=== PATIENT | female | born 1950 | race Caucasian/White ===

== ENCOUNTER 2020-07-16 06:47 | Outpatient (CLI) | payer OTHER ==
[2020-07-16 14:35] LABS: #Basophils 0.1 10x3/uL (0.0-0.2); #Eosinphils 0.5 10x3/uL (0.0-0.5); #Monocytes 0.3 10x3/uL (0.0-1.1); #Neutrophils 2.3 10x3/uL (1.5-8.4); %Basophils 1.4 % (0.0-2.0); %Eosinophils 11.3 % (0.0-6.0); %Lymphocytes 25.5 % (18.0-47.0); %Neutrophils 55.6 % (40.0-75.0); Mean Corpuscular HGB CONC 31.7 G/DL (32.0-36.0); Mean Corpuscular Hemoglobin 29.5 PG (27.0-33.0); Mean Corpuscular Volume 93.1 fl (80.0-100.0); Mean Platelet Volume 10.5 fl (7.4-10.4); Platelet Count 262 10x3/uL (130-400); RBC Distribution Width 12.4 % (11.5-14.5); Red Blood Cell (RBC) Count 4.07 10x6/uL (3.90-5.20); White Blood Cell (WBC) Count 4.2 10x3/uL (4.5-11.0)
[2020-07-16 14:46] LABS: Anion Gap 12 mmol/L (10-20); BUN (Urea Nitrogen) 15 mg/dL (9.8-20.1); Calc. Creatinine Clearance 0 mL/min (70-130); Calcium 8.6 mg/dL (7.8-10.44); Carbon Dioxide 24 mmol/L (23-31); Chloride 109 mmol/L (98-107); Glucose 87 mg/dL (83-110); Potassium 4.3 mmol/L (3.5-5.1); Sodium 141 mmol/L (136-145)
[2020-07-17 05:28] LABS: SARS-CoV-2 PCR by NAA Not Detected (NotDetected)
== END 2020-07-16 06:48 | disposition home or self-care (01) ==
LOC: LABBT 06:47
PROVIDERS: ATTEND Orthopaedic Surgery
DX: Z01.812 Encounter for preprocedural laboratory examination (principal); Z20.822 Contact with and (suspected) exposure to COVID-19; S46.011A Strain of muscle(s) and tendon(s) of the rotator cuff of right shoulder, initial encounter; M19.011 Primary osteoarthritis, right shoulder
CPT/HCPCS: 80048; 85025; 87635; U0003; U0005

== ENCOUNTER 2020-07-19 05:53 | Day surgery (SDC) | payer MEDICARE ==
[2020-07-17 10:45] VITALS: BMI 30.5
[2020-07-19] MEDS ORDERED: Fentanyl 100 MCG/2 ML VIAL ONE ×2 (06:34→06:50)
[2020-07-19] MEDS ORDERED: Midazolam HCl 2 mg/2 ml Vial ONE (06:50)
[2020-07-19] MEDS ORDERED: Bupivacaine 0.25% HCL 30 ML VIAL ONE (07:02)
[2020-07-19] MEDS ORDERED: EPINEPHrine 1 MG/ML AMP ONE (07:02)
[2020-07-19] MEDS ORDERED: Phenylephrine 10 MG/ML VIAL ONE (08:11)
[2020-07-19] MEDS ORDERED: Fentanyl 100 MCG/2 ML VIAL SLOW IVP PRN (08:54)
[2020-07-19] MEDS ORDERED: Ondansetron PF 4 MG/2 ML Vial IVP PRN (09:00)
[2020-07-19] MEDS ORDERED: traMADol HCl 50 MG TAB PO PRN ×2 (09:00)
[2020-07-19] MEDS ORDERED: Zolpidem Tartrate 5 MG TAB PO PRN (09:00)
[2020-07-19] MEDS ORDERED: Promethazine HCl 25 MG/ML VIAL IM PRN (09:00)
[2020-07-19] MEDS ORDERED: HYDROcodone/Acetaminophen 10/325 mg Tablet PO PRN ×2 (09:00)
[2020-07-19] MEDS ORDERED: Ropivacaine 0.2% 550 ML 550 ML NERVE BLCK SCH (09:00)
--- NOTE | 2020-07-19 09:53 | OP ---
DATE OF PROCEDURE: 07/19/2020 PREOPERATIVE DIAGNOSIS: Right high-grade partial-thickness rotator cuff tear of the right shoulder. POSTOPERATIVE DIAGNOSIS: Right high-grade partial-thickness rotator cuff tear of the right shoulder. PROCEDURE PERFORMED: Right rotator cuff repair. AVIONICS SYSTEMS ENGINEER: None. ANESTHESIOLOGIST: Vasile Mcfarlane MD ANESTHESIA: The patient received a general intubation with interscalene block. ESTIMATED BLOOD LOSS: Less than 20 mL. TOURNIQUET TIME: None. ANTIBIOTICS: Ancef. IMPLANTS: A 5.5 corkscrew, a 4.75 SwiveLock. COMPLICATIONS: None. HISTORY OF PRESENT ILLNESS: Ms. Damon is a 70-year-old female, who presents with pain since July of 2019. The patient has pain with all her activities. The patient had failed conservative measures with anti-inflammatories and therapy. She had pain with overhead activities and weakness and pain with motion. The patient had a high-grade bursal thickness tear with supraspinatus. I discussed risks and benefits of an arthroscopic evaluation of the rotator cuff for possible takedown repair. I discussed potential biceps tenodesis based on intraoperative evaluation. She understood the risks and benefits of these procedure and would like to proceed. DESCRIPTION OF PROCEDURE: Time-out was performed designating the patient's right upper extremity as the operative site based on the site, consents, and markings. After time-out, the patient's upper extremity was prepped and draped in a sterile fashion. She was placed in a beach chair position with bony prominences well padded. She had a posterior portal placed and anterior working portal placed and visualized intraarticularly. The biceps looked good through its course. The sling was slightly damaged but she was not subluxing. She had a good subscapularis insertion. She had some capsular tearing intra-articularly that was noted and then spotted it near the bare spot. There was no obvious completion of full- thickness tear intra-articularly. The glenoid surface and humeral surface looked good. There was degenerative labral fraying, which is clean. The biceps was left in place and moved subacromially. We debrided off the bursa to expose the shoulder. I found a soft spot between the supraspinatus and infraspinatus, which fell into kind of a cavernous defect. I debrided the footprint down to create a spot for repair, placed a 5.5 corkscrew into that position, passed four sutures in horizontal mattress fashion, as we tied the knots, took them down laterally to help compress the cuff down, placed a 4.75 SwiveLock laterally, reprobed the cuff, could not find any more defects. I had adequately debrided the bursa. This completed my procedure and closed with 3-0 nylon. The patient will be placed in a sling. She will begin elbow, wrist, and hand motion. Begin passive range of motion in 2 weeks. She will be discharged to home with pain medications. Job ID: [id number] [facility]
[2020-07-19] MEDS ORDERED: Ketorolac Tromethamine 30 MG/ML VIAL ONE (09:56)
[2020-07-19] MEDS ORDERED: Lidocaine 1% PF 5 ML VIAL ONE (09:56)
[2020-07-19] MEDS ORDERED: PHENYLEPHRINE-NS 100 MCG/ML 10 ML SYRINGE ONE (09:56)
[2020-07-19] MEDS ORDERED: Rocuronium Bromide 10 MG/ML (10ML VIAL) ONE (09:56)
[2020-07-19] MEDS ORDERED: Dexamethasone 20 MG/5 ML VIAL ONE (09:56)
[2020-07-19] MEDS ORDERED: Ondansetron PF 4 MG/2 ML Vial ONE (09:56)
[2020-07-19] MEDS ORDERED: Bupivacaine HCl 0.5%/Epinephrine 1:200,000/PF 30 ml Vial ONE (09:56)
[2020-07-19] MEDS ORDERED: ePHEDrine 50 MG/ML VIAL ONE (09:56)
[2020-07-19] MEDS ORDERED: PROPOFOL 200 MG/20 ML VIAL ONE (09:56)
[2020-07-19] MEDS ORDERED: Glycopyrrolate 0.2 MG/ML 5 ML SYRINGE ONE (09:56)
== END 2020-07-19 10:40 | disposition home or self-care (01) ==
LOC: SDC 05:53
PROVIDERS: ATTEND Orthopaedic Surgery
PROC: 0LQ14ZZ Repair Right Shoulder Tendon, Percutaneous Endoscopic Approach (ICD-10-PCS; principal; 2020-07-19)
PROC: 3E0T3BZ Introduction of Anesthetic Agent into Peripheral Nerves and Plexi, Percutaneous Approach (ICD-10-PCS; 2020-07-19)
DX: S46.011A Strain of muscle(s) and tendon(s) of the rotator cuff of right shoulder, initial encounter (principal); M19.011 Primary osteoarthritis, right shoulder; G89.18 Other acute postprocedural pain; M19.031 Primary osteoarthritis, right wrist; E78.5 Hyperlipidemia, unspecified; K22.70 Barrett's esophagus without dysplasia; M81.0 Age-related osteoporosis without current pathological fracture; G43.909 Migraine, unspecified, not intractable, without status migrainosus; E66.9 Obesity, unspecified; Z68.30 Body mass index [BMI] 30.0-30.9, adult; Z87.891 Personal history of nicotine dependence; Z79.811 Long term (current) use of aromatase inhibitors; Z79.899 Other long term (current) drug therapy; X50.1XXA Overexertion from prolonged static or awkward postures, initial encounter
CPT/HCPCS: 29827; 64416; A4306; C1713; J0171; J0690; J1100; J1885; J2250; J2370; J2405; J2704; J2795; J3010; J3490; S0020

== ENCOUNTER 2020-10-04 10:11 | Outpatient (CLI) | payer MEDICARE ==
[2020-10-04 11:22] LABS: Bilirubin Neg (Negative); Blood, Urine 10 (Negative); Clarity Clear (Clear); Glucose, Urine (Dipstick) Normal (Negative); Ketone, Urine Negative (Negative); Leukocyte Negative (Negative); Nitrite Negative (Negative); Protein, Urine (Dipstick) 15 mg/dl (Neg-Trace); Urobilinogen Normal mg/dL (Less than 2)
[2020-10-04 11:30] LABS: #Basophils 0.1 10x3/uL (0.0-0.2); #Eosinphils 0.5 10x3/uL (0.0-0.5); #Monocytes 0.3 10x3/uL (0.0-1.1); #Neutrophils 2.5 10x3/uL (1.5-8.4); %Basophils 1.2 % (0.0-2.0); %Eosinophils 9.3 % (0.0-6.0); %Lymphocytes 31.6 % (18.0-47.0); %Monocytes 6.6 % (0.0-10.0); %Neutrophils 51.1 % (40.0-75.0); Hemoglobin 12.3 g/dL (12.0-15.5); Mean Corpuscular HGB CONC 32.2 g/dL (32.0-36.0); Mean Corpuscular Hemoglobin 29.4 pg (27.0-33.0); Mean Corpuscular Volume 91.4 fl (81.6-98.3); Mean Platelet Volume 10.5 fl (7.4-10.4); Platelet Count 257 10x3/uL (150-450); RBC Distribution Width 12.6 % (11.5-14.5); Red Blood Cell (RBC) Count 4.18 10x6/uL (3.90-5.03); White Blood Cell (WBC) Count 4.8 10x3/uL (3.5-10.5)
[2020-10-04 11:36] LABS: Bacteria/HPF None Seen HPF (None Seen); RBC/HPF 0-3 HPF (0-3); Squamous Epithelial 0-3 HPF (0-3); WBC/HPF 0-3 HPF (0-3)
[2020-10-04 22:12] LABS: SARS-CoV-2 PCR by NAA Not Detected (NotDetected)
== END 2020-10-04 10:12 | disposition home or self-care (01) ==
LOC: LABBT 10:11
PROVIDERS: ATTEND Orthopaedic Surgery Hand Surgery
DX: Z01.818 Encounter for other preprocedural examination (principal); M18.11 Unilateral primary osteoarthritis of first carpometacarpal joint, right hand; Z20.822 Contact with and (suspected) exposure to COVID-19
CPT/HCPCS: 81001; 85025; 93005; U0003; U0005; 87635; 93010

== ENCOUNTER 2020-10-09 06:00 | Day surgery (SDC) | payer MEDICARE ==
[2020-10-08 08:57] VITALS: BMI 30.5
[2020-10-09] MEDS ORDERED: Betamet Acet/Betamet Na Ph 30 MG/5 ML VIAL ONE (06:43)
[2020-10-09] MEDS ORDERED: Sodium Chloride 0.9% 10 ML ONE (06:43)
[2020-10-09] MEDS ORDERED: Bacitracin Zinc Ointment 30 gm TUBE ONE (06:43)
[2020-10-09] MEDS ORDERED: Bupivacaine PF 0.5% 30 ML VIAL ONE (06:43)
[2020-10-09] MEDS ORDERED: Fentanyl 100 MCG/2 ML VIAL ONE (07:06)
[2020-10-09] MEDS ORDERED: Phenylephrine 10 MG/ML VIAL ONE (07:11)
[2020-10-09] MEDS ORDERED: Ondansetron PF 4 MG/2 ML Vial ONE (07:18)
[2020-10-09] MEDS ORDERED: Lidocaine 1% PF 5 ML VIAL ONE (07:18)
[2020-10-09] MEDS ORDERED: Bupivacaine HCl 0.5%/Epinephrine 1:200,000/PF 30 ml Vial ONE (07:18)
[2020-10-09] MEDS ORDERED: PROPOFOL 200 MG/20 ML VIAL ONE (07:18)
[2020-10-09] MEDS ORDERED: Dexamethasone 20 MG/5 ML VIAL ONE (07:18)
[2020-10-09] MEDS ORDERED: Ketorolac Tromethamine 30 MG/ML VIAL ONE (10:16)
== END 2020-10-09 11:45 | disposition home or self-care (01) ==
LOC: SDC 06:00
PROVIDERS: ATTEND Orthopaedic Surgery Hand Surgery
PROC: 0LX50ZZ Transfer Right Lower Arm and Wrist Tendon, Open Approach (ICD-10-PCS; principal; 2020-10-09)
PROC: 0RUS07Z Supplement Right Carpometacarpal Joint with Autologous Tissue Substitute, Open Approach (ICD-10-PCS; 2020-10-09)
DX: M18.0 Bilateral primary osteoarthritis of first carpometacarpal joints (principal); M77.11 Lateral epicondylitis, right elbow; G43.909 Migraine, unspecified, not intractable, without status migrainosus; Z85.3 Personal history of malignant neoplasm of breast; Z79.811 Long term (current) use of aromatase inhibitors; Z79.899 Other long term (current) drug therapy
CPT/HCPCS: 76000; C1713; J0690; J0702; J1100; J1885; J2370; J2405; J2704; J3010; J3490; S0020

== ENCOUNTER 2022-05-26 15:01 | Outpatient (CLI) | payer MEDICARE | END 2022-05-26 15:02 | disposition home or self-care (01) | LOC: SCSRAD 15:01 | PROVIDERS: ATTEND Orthopaedic Surgery Hand Surgery | DX: M18.0 Bilateral primary osteoarthritis of first carpometacarpal joints (principal) ==

== ENCOUNTER 2023-05-14 08:49 | Outpatient (CLI) | payer MEDICARE | END 2023-05-14 08:50 | disposition home or self-care (01) | LOC: NM 08:49 | PROVIDERS: ATTEND Psychiatry & Neurology Neurology | DX: R26.2 Difficulty in walking, not elsewhere classified (principal); R29.818 Other symptoms and signs involving the nervous system | CPT/HCPCS: 78803; A9584 ×2 ==